=== PATIENT | female | born 1975 | race Caucasian/White ===

== ENCOUNTER 2016-08-24 13:40 | Emergency (ER) | payer MEDICAID | END 2016-08-24 14:13 | disposition home or self-care (01) | DX: J06.9 Acute upper respiratory infection, unspecified (principal); R06.2 Wheezing; F17.200 Nicotine dependence, unspecified, uncomplicated ==

== ENCOUNTER 2017-04-19 09:59 | Emergency (ER) | payer OTHER, MEDICAID ==
[2017-04-19 10:21] VITALS: BP 157/99
--- NOTE | 2017-04-19 10:26 | ED Physician Documentation ---
PD HPI HEENT - Stated complaint Stated Complaint: L EAR PX - Chief complaint Chief Complaint: Heent - History obtained from History obtained from: Patient - History of Present Illness Timing - onset: How many days ago (4) Timing - duration: Days (4) Timing - details: Abrupt onset, Still present Location: Left ear Improves: No: Medication (not improved with cortisporin otic drops for 2 full days of use.) Associated symptoms: Swollen nodes, Facial swelling (some around left preauricular area). No: Fever, Congestion Similar symptoms before: Has not had sx before Recently seen: Clinic (2 days ago and Dx with swimmers ear (she does use qtips occasionally, does not swim). Rx with cortisporin drops (she says she had initial Rx for something else but it was very expensive and her insurance did not cover it, so pharmacist called PMD and it was switched toCortisporin)) Review of Systems Constitutional: denies: Fever, Chills Ears: reports: Loss of hearing (on left), Ear pain. 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) - Past Surgical History Past Surgical History: No - Present Medications Home Medications: Ambulatory Orders Medication Instructions Recorded Confirmed Dexamethasone [Decadron] 4 mg PO DAILY #5 tablet 04/19/17 Ofloxacin 0.3% Ophth Drops 3 drops LEFTEAR QID #1 btl 04/19/17 [Ocuflox 0.3% Ophth Drops] Sulfamethox/Trimeth 800/160 1 each PO BID #14 tablet 04/19/17 [Bactrim Ds 800/160] Varenicline Tartrate [Chantix] 1 mg PO BID 04/19/17 04/19/17 - Allergies Allergies/Adverse Reactions: Allergies Allergy/AdvReac Type Severity Reaction Status Date / Time No Known Drug Allergies Allergy Verified 08/24/16 13:53 - Social History Does the pt smoke?: Yes Smoking Status: Current every day smoker Does the pt drink ETOH?: Yes Does the pt have substance abuse?: No - Immunizations Immunizations are current?: Yes PD ED PE NORMAL - Vitals Vital signs reviewed: Yes - General General: Alert and oriented X 3, No acute distress, Well developed/nourished - HEENT HEENT: Moist mucous membranes, Pharynx benign. No: Ears normal (right is good, but left has marked swelling of canal with redness of tissue. TM poorly seen but does appear intact. No obvious drainage. ) - Neck Neck: Supple, no meningeal sign, Other (left preauricular nodes palpable and some tender. No tenderness to percussion in mastoid area. ) - Cardiac Cardiac: RRR, No murmur - Derm Derm: Normal color, Warm and dry, No rash - Neuro Neuro: Alert and oriented X 3, Normal speech Results - Vitals Vitals: Vital Signs - 24 hr 04/19/17 10:05 Temperature 35.9 C L Heart Rate 105 H Respiratory 16 Rate Blood Pressure 157/99 H O2 Saturation 97 Oxygen O2 Source Room air PD MEDICAL DECISION MAKING - ED course Complexity details: considered differential (marked swelling and redness of canal. Wick placed with some drops to expand it. Seems like infection is in tissue and not just superficial, so will treat with oral as well. ), d/w patient Departure - Departure Disposition: 01 Home, Self Care Clinical Impression: Cellulitis of left ear canal Otitis externa Qualifiers: Otitis externa type: other infective Chronicity: acute Laterality: left Qualified Code(s): H60.392 - Other infective otitis externa, left ear Condition: Stable Record reviewed to determine appropriate education?: Yes Instructions: ED Otitis Externa Prescriptions: Dexamethasone [Decadron] 4 mg PO DAILY #5 tablet Ofloxacin 0.3% Ophth Drops [Ocuflox 0.3% Ophth Drops] 3 drops LEFTEAR QID #1 btl Sulfamethox/Trimeth 800/160 [Bactrim Ds 800/160] 1 each PO BID #14 tablet Comments: Switch from the current antibiotic eardrops to ofloxacin. This is an eyedrop preparation but can be used in the ear and should be cheap and presumably covered by insurance. Use it 2-3 drops in the left ear 4 times a day. We will also treat for the infection being deeper in the tissue with oral medications of an anti-inflammatory and Bactrim antibiotic. Recheck if not improved over the next several days to week. Change the wick tomorrow and after that hopefully the swelling will be down enough to be able to put the drops in without a wick. Discharge Date/Time: 04/19/17 11:05
== END 2017-04-19 11:05 | disposition home or self-care (01) ==
LOC: ED 09:59
DX: H60.12 Cellulitis of left external ear (principal); H60.392 Other infective otitis externa, left ear; F17.200 Nicotine dependence, unspecified, uncomplicated
CPT/HCPCS: 99283

== ENCOUNTER 2017-11-18 04:51 | Emergency (ER) | payer MEDICAID, OTHER ==
--- NOTE | 2017-11-18 05:46 | ED Physician Documentation ---
History of Present Illness - Stated complaint Stated Complaint: ALLERGY REACTION - Chief complaint Chief Complaint: General - History obtained from History obtained from: Patient - History of Present Illness Timing: Yesterday Pain level now: 2 Improved by: no ameliorating factors Worsened by: no exacerbating factors - Additonal information Additional information: saw dentist yesterday for dental pain and trace facial swelling, had xrays which patient says revealed an abscess, started on PO penicillin. Presents due to sudden worsening of facial swelling although she says the pain has improved and she is only using OTC analgesics (was not prescribed and says she does not need any). She says she had a (+) home- test recently. Review of Systems Constitutional: denies: Fever, Chills, Sweats Nose: denies: Congestion, Sinus pressure / pain Throat: reports: Dental pain / toothache. 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) - Past Surgical History Past Surgical History: No - Present Medications Home Medications: Ambulatory Orders Medication Instructions Recorded Confirmed Clindamycin HCl [Clindamycin 300MG 300 mg PO Q6HR 10 Days #39 capsule 11/18/17 CAP] predniSONE [Prednisone] 20 mg PO BID #5 tablet 11/18/17 - Allergies Allergies/Adverse Reactions: Allergies Allergy/AdvReac Type Severity Reaction Status Date / Time Penicillins Allergy Edema Verified 11/18/17 05:03 - Social History Does the pt smoke?: Yes Smoking Status: Current every day smoker Does the pt drink ETOH?: Yes Does the pt have substance abuse?: No - Immunizations Immunizations are current?: Yes - POLST Patient has POLST: No PD ED PE NORMAL - Vitals Vital signs reviewed: Yes - General General: Alert and oriented X 3, No acute distress, Well developed/nourished - HEENT HEENT: Moist mucous membranes - Neck Neck: Supple, no meningeal sign PD ED PE EXPANDED - HEENT HEENT Visual: 1 - swelling (mild gingival swelling without fluctuance or palpable/visible abscess collection), tenderness (mild TTP) 2 - rash (erythema), swelling Results - Vitals Vitals: Vital Signs - 24 hr 11/18/17 11/18/17 11/18/17 04:59 07:46 08:53 Temperature 36.9 C 98.8 C H 37.2 C Heart Rate 97 73 64 Respiratory 18 12 12 Rate Blood Pressure 134/90 H 120/97 H 122/97 H O2 Saturation 97 98 99 11/18/17 09:03 Temperature 38.2 C H Heart Rate 74 Respiratory 12 Rate Blood Pressure 112/87 H O2 Saturation 99 Oxygen O2 Source Room air - Labs Labs: Laboratory Tests 11/18/17 11/18/17 06:00 06:00 WBC 14.9 H RBC 4.55 Hgb 13.2 Hct 40.6 MCV 89.2 MCH 28.9 MCHC 32.5 RDW 13.6 Plt Count 307 MPV 7.6 L Neut # (Auto) 12.0 H Lymph # (Auto) 1.5 Brooke # (Auto) 1.1 H Eos # (Auto) 0.1 Baso # (Auto) 0.1 Absolute Nucleated RBC 0.00 Nucleated RBC % 0.0 Sodium 133 L Potassium 4.0 Chloride 99 L Carbon Dioxide 24 Anion Gap 10.0 BUN 8 Creatinine 0.6 Estimated GFR (MDRD) 110 Glucose 121 H Calcium 8.9 - Rads (name of study) CT facial bones Radiology: Prelim report reviewed, See rad report PD MEDICAL DECISION MAKING - ED course Complexity details: reviewed results, re-evaluated patient, considered differential, d/w patient Departure - Departure Disposition: 01 Home, Self Care Clinical Impression: Facial cellulitis, Dental abscess Condition: Good Instructions: ED Dental Abscess Facial Cellulitis Prescriptions: Clindamycin HCl [Clindamycin 300MG CAP] 300 mg PO Q6HR 10 Days #39 capsule predniSONE [Prednisone] 20 mg PO BID #5 tablet Comments: Follow up with your dentist Monday. Discharge Date/Time: 11/18/17 09:03
[2017-11-18] MEDS ORDERED: IOPAMIDOL-300 100 ML VIAL ONE (06:14)
[2017-11-18 06:21] LABS: BASOPHILS # (AUTO) 0.1 10^3/uL (0.0-0.1); EOSINOPHILS # (AUTO) 0.1 10^3/uL (0.0-0.7); EOSINOPHILS % (AUTO) 0.9 %; HGB - HEMOGLOBIN 13.2 g/dL (12.0-16.0); LYMPHOCYTES # (AUTO) 1.5 10^3/uL (1.5-3.5); LYMPHOCYTES % (AUTO) 10.4 %; MEAN CORPUSCULAR HEMOGLOBIN 28.9 pg (27.0-31.0); MEAN CORPUSCULAR HGB CONC 32.5 g/dL (32.0-36.0); MEAN CORPUSCULAR VOLUME 89.2 fL (81.0-99.0); MEAN PLATELET VOLUME 7.6 fL (7.9-10.8); MONOCYTES # (AUTO) 1.1 10^3/uL (0.0-1.0); MONOCYTES % (AUTO) 7.3 %; NEUTROPHILS % (AUTO) 80.4 %; PLT - PLATELET COUNT 307 10^3/uL (130-450); RED BLOOD COUNT 4.55 10^6/uL (4.20-5.40); RED CELL DISTRIBUTION WIDTH 13.6 % (12.0-15.0); WHITE BLOOD COUNT 14.9 x10^3/uL (4.8-10.8)
[2017-11-18 06:35] LABS: CALCIUM 8.9 mg/dL (8.5-10.3); CREATININE 0.6 mg/dL (0.4-1.0)
[2017-11-18] MEDS ORDERED: IOPAMIDOL-300 100 ML VIAL IVP ONE (06:42)
--- NOTE | 2017-11-18 07:34 | CT Report ---
EXAM: CT MAXILLOFACIAL WITH CONTRAST EXAM DATE: 11/18/2017 06:58 AM. CLINICAL HISTORY: Dental abscess. Swelling left side of face. COMPARISONS: None. TECHNIQUE: Thin-section axial images were acquired of the face after administration of intravenous co ntrast. Post-processing: Coronal and sagittal reformats. Other: None. IV contrast: 80ML ISOVUE 300. In accordance with CT protocol optimization, one or more of the following dose reduction techniques w ere utilized for this exam: automated exposure control, adjustment of mA and/or KV based on patient s ize, or use of iterative reconstructive technique. Findings: Relevant images are indicated (image number, series number). Limited evaluation of intracranial contents unremarkable. There is left preseptal edema, no drainable abscess, no post-septal involvement. Left orbit otherwise negative. Asymmetric soft tissue swelling overlying the left face with scattered subcutaneous fat stranding, as ymmetrical left-sided thickening of the cervical fascial fascia. Thin edema abutting left maxilla, bu ccal side, (60, 4) measuring 7.4 mm in length, 0.2 cm in width, at least 10.5 mm craniocaudal (30, 6) . Otherwise, there is however no drainable collection, no defined abscess at this time. Multifocal poor dentition, apical cyst present left maxillary first premolar (65, 7). Multifocal dent al caries present. No additional apical cyst. No gross bony destructive process. Remaining oral cavity unremarkable. Impressions: 1. Thin abscess abutting buccal side maxillary ridge as detailed. Scattered subcutaneous fat strandin g overlying the left face including preseptal edema, no post-septal involvement, consistent with patc hy prominent cellulitis. Consider short interval follow-up imaging to evaluate for additional develop ment of abscess. No large drainable collection as detailed. 2. Multifocal poor dentition, apical cyst involving left maxillary premolar. No gross bony destructiv e process. [facility] Referring Provider Line: [phone] SITE ID: [id number]
[2017-11-18] MEDS ORDERED: CLINDAMYCIN 600 MG/50 ML 50 ML IV ONE (07:50)
[2017-11-18] MEDS ORDERED: predniSONE 20 MG TABLET PO STA (07:52)
[2017-11-18 09:05] VITALS: BP 112/87
== END 2017-11-18 09:03 | disposition home or self-care (01) ==
LOC: ED 04:51
DX: K04.7 Periapical abscess without sinus (principal); L03.211 Cellulitis of face; F17.200 Nicotine dependence, unspecified, uncomplicated
CPT/HCPCS: 36415; 70487; 80048; 85025; 96374; 99283; J7512; Q9967

== ENCOUNTER 2017-11-24 19:29 | Outpatient (CLI) | payer OTHER ==
--- NOTE | 2017-11-24 20:53 | Ultrasound Preliminary Report ---
Exam: US OB FIRST TRIMESTER IMPRESSION: Equivocal very small single intrauterine gestational sac, which, if "real" corresponds to EGA 5 weeks 5 days, MIS 07/22/2018. Recommend serial beta hCG and follow-up pelvic ultrasound in 10-14 days to d etermine significance of this finding. [facility] The call report notification system was initiated by Dr. Gilda Faustin at 20:46 hrs on 11/24/17. The above findings were discussed with JAYSON Barnhart by Dr. Gilda Faustin at 20:52 hrs on 8. SITE ID: [id number]
--- NOTE | 2017-11-24 21:01 | Ultrasound Report ---
EXAM: FIRST TRIMESTER OBSTETRIC ULTRASOUND (Less than 11 weeks) EXAM DATE: 11/24/2017 08:21 PM. CLINICAL HISTORY: Vaginal bleeding. LMP: 10/06/2017. COMPARISONS: None. TECHNIQUE: Transabdominal ultrasound examination with static image documentation. Please note that tr ansvaginal scanning not performed. CLINICAL DATES: EGA 7 weeks 0 days with MIS 07/13/2018 based on LMP. ASSESSMENT: Gestational Sac: Equivocal single intrauterine gestational sac 10 mm mean gestational sac diameter, along the anterior margin of the 11 mm thick endometrial echoes. Small amount of highly echogenic material within this small fluid collection. No confident visualization of either pole or yolk sac. No cardiac motion. MATERNAL STRUCTURES: Uterus: Anteverted. 9.6 x 4.5 x 4.9 cm, 111 cc. Normal myometrial echoes. Unremarkable. Cervix: Closed. Right Ovary/Adnexa: Unremarkable. The ovary measures 1.8 x 1.4 x 2.5 cm, volume 3.2 cc. Left Ovary/Adnexa: Unremarkable. The ovary measures 2.3 x 1.4 x 2.4 cm, volume 4.1 cc. Free Fluid: None. Other: None. IMPRESSION: Equivocal very small single intrauterine gestational sac, which, if "real", corresponds to EGA 5 week s 5 days, MIS 07/22/2018. Recommend serial beta hCG and follow-up pelvic ultrasound in 10-14 days to determine significance of this finding. TESSIEA The call report notification system was initiated by Dr. Gilda Faustin at 20:46 hrs on 11/24/17. The above findings were discussed with JAYSON Barnhart by Dr. Gilda Faustin at 20:52 hrs on 8. Referring Provider Line: [phone] SITE ID: [id number]
== END 2017-11-24 19:30 | disposition home or self-care (01) ==
LOC: DI 19:29
PROVIDERS: ATTEND Physician Assistant
DX: O46.91 Antepartum hemorrhage, unspecified, first trimester (principal)
CPT/HCPCS: 76801

== ENCOUNTER 2017-12-11 14:38 | Outpatient (CLI) | END 2017-12-11 14:39 | disposition home or self-care (01) ==

== ENCOUNTER 2017-12-19 11:09 | Outpatient (CLI) | payer OTHER | END 2017-12-19 11:10 | disposition home or self-care (01) | LOC: LAB 11:09 | PROVIDERS: ATTEND Obstetrics & Gynecology | DX: O20.9 Hemorrhage in early pregnancy, unspecified (principal) | CPT/HCPCS: 36415; 84702 ==

== ENCOUNTER 2018-12-25 20:34 | Emergency (ER) | payer BC, OTHER ==
[2018-12-25] MEDS ORDERED: GABAPENTIN 100 MG CAPSULE PO STA (21:26)
[2018-12-25] MEDS ORDERED: CHERRY SYRUP 10 ML UDC PO ONE (21:26)
[2018-12-25] MEDS ORDERED: DEXAMETHASONE 10 MG/ML VIAL PO STA (21:26)
--- NOTE | 2018-12-25 21:28 | ED Physician Documentation ---
History of Present Illness - Stated complaint Stated Complaint: BILAT HAND TINGLE/PX - Chief complaint Chief Complaint: Ext Problem - History obtained from History obtained from: Patient - History of Present Illness Timing: How many weeks ago (several) Pain level max: 5 Pain level now: 5 - Additonal information Additional information: 43-year-old female complains of bilateral hand tingling for the past several weeks to months. She states she has a history of carpal tunnel syndrome. She states it is worse with typing on a keyboard. Nothing makes it better. Has not taken anything for pain. She did try a brace on the left hand but states that this did not help. Has not seen an orthopedist. 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) - Past Surgical History Past Surgical History: No - Present Medications Home Medications: Ambulatory Orders Medication Instructions Recorded Confirmed Gabapentin 100 mg PO TID PRN #20 capsule 12/25/18 - Allergies Allergies/Adverse Reactions: Allergies Allergy/AdvReac Type Severity Reaction Status Date / Time Penicillins Allergy Edema Verified 11/18/17 05:03 - Social History Does the pt smoke?: Yes Smoking Status: Current every day smoker Does the pt drink ETOH?: Yes Does the pt have substance abuse?: No - Immunizations Immunizations are current?: Yes - POLST Patient has POLST: No PD ED PE NORMAL - Vitals Vital signs reviewed: Yes - General General: Alert and oriented X 3, No acute distress, Well developed/nourished - HEENT HEENT: PERRL, Moist mucous membranes - Neck Neck: Supple, no meningeal sign - Cardiac Cardiac: RRR, Strong equal pulses - Respiratory Respiratory: No respiratory distress, Clear bilaterally - Abdomen Abdomen: Soft, Non tender, Non distended - Derm Derm: Warm and dry - Extremities Extremities: Other (Normal examination of the bilateral hands. Negative Phalen's test. Negative Tinel sign) - Neuro Neuro: Alert and oriented X 3, No motor deficit, No sensory deficit - Psych Psych: Normal mood, Normal affect Results - Vitals Vitals: Vital Signs - 24 hr 07/09/19 07/09/19 20:37 21:32 Temperature 36.7 C 36.9 C Heart Rate 97 94 Respiratory 16 16 Rate Blood Pressure 148/117 H 141/85 H O2 Saturation 99 98 Oxygen O2 Source Room air PD MEDICAL DECISION MAKING - ED course Complexity details: considered differential, d/w patient ED course: 43-year-old female with what sounds like carpal tunnel syndrome. Declines any bracing. We will trial her on gabapentin and recommend that she follow-up with orthopedics for further care. Also given a dose of dexamethasone here. Patient counseled regarding signs and symptoms for which I believe and urgent re-evaluation would be necessary. Patient with good understanding of and agreement to plan and is comfortable going home at this time This document was made in part using voice recognition software. While efforts are made to proofread this document, sound alike and grammatical errors may occur. Departure - Departure Disposition: 01 Home, Self Care Clinical Impression: Carpal tunnel syndrome Qualifiers: Laterality: bilateral Qualified Code(s): G56.03 - Carpal tunnel syndrome, bilateral upper limbs Condition: Good Instructions: ED Carpal Tunnel Follow-Up: AVELINA MIRZA MD [Primary Care Provider] - Within 1 week Prescriptions: Gabapentin 100 mg PO TID PRN #20 capsule PRN Reason: hand pain Comments: Follow up with your doctor for further evaluation. You should see an orthopedist/hand surgeon as well. Return if you worsen. Forms: Activity restrictions Discharge Date/Time: 12/25/18 21:35
[2018-12-25 21:33] VITALS: BP 141/85
== END 2018-12-25 21:35 | disposition home or self-care (01) ==
LOC: ED 20:34
DX: G56.03 Carpal tunnel syndrome, bilateral upper limbs (principal); F17.200 Nicotine dependence, unspecified, uncomplicated
CPT/HCPCS: 99282; 99284; A9270

== ENCOUNTER 2023-06-22 12:26 | Emergency (ER) | payer BC, OTHER ==
[2023-06-22 12:35] VITALS: BP 114/60; O2SAT 99
--- NOTE | 2023-06-22 12:54 | ED Physician Documentation ---
PD HPI LOWER EXT INJURY - Stated complaint Stated Complaint: GLF/LT KNEE INJ - Chief complaint Chief Complaint: Trauma Ext - History obtained from History obtained from: Patient - History of Present Illness PD HPI LOW EXT INJURY LOCATION: Left, Knee Type of injury: Fall Where injury occurred: Work Timing - onset: How many hours ago (1), Today - Additional information Additional information: Patient reports she was at work slipped and fell onto an old piece of concrete did not hit her head denies any abuse or concerns of abuse and now has large open wound to her left anterior knee. Bleeding is well-controlled she denies any use of blood thinners. She says that she is able to ambulate without any difficulty and denies any knee pain aside from the open laceration to her knee. She denies any dizziness or weakness leading to the fall and reports that it was strictly mechanical given the wet surface of the walking area. 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: Yes - POLST Patient has POLST: No PD ED PE NORMAL - General General: Alert and oriented X 3 - HEENT HEENT: Atraumatic - Derm Derm: Other (Large open laceration to the anterior aspect of her left knee in an L-shaped. Approximately 6 to 7 cm. Bleeding well-controlled.) - Extremities Extremities: No deformity, No calf tenderness / cord, Other (Patient able to b end knee pulses palpable is able to ambulate with any weakness no obvious deformity or joint line tenderness) Results - Vitals Vitals: Vital Signs - 24 hr 06/22/23 12:30 Temperature 36.5 C Heart Rate 65 Respiratory 18 Rate Blood Pressure 114/60 O2 Saturation 99 Oxygen O2 Source Room air - Rads (name of study) x ray Relevant Findings:: Final report received, EMP independent interpretation of test (No obvious fractures or dislocation) Procedures - Laceration (location) Lower extremity Length in cm: 8 Wound type: Flap, Exposure of cartilage Neurovascular status: Sensory intact, Motor intact Tendon involvement: Tendon intact Anesthesia: Marcaine 0.25% Wound preparation: Irrigated copiously NS Skin layer closure: Nylon, Sutures - enter # (10) Other: Patient tolerated well PD Medical Decision Making - ED course ED course: X-rays are complete of the left knee does not reveal any obvious fractures or dislocations, no chips to the patella. Patient is able to ambulate without difficulty, full strength full range of motion. The wound does appear to be deep enough to the tendon sheath. See laceration note above. She received a total of 10 sutures the wound ended up being about 8 cm in length. Patient tolerated procedure well. Is irrigated copiously with normal saline. Patient was advised to have sutures removed in 14 days given that it is over a joint. There is no antibiotics required at this time but patient was told if she starts to develop any signs or symptoms of infection and was taught what signs and symptoms of infection to watch out for to start taking antibiotic Keflex paper prescriptions at home with patient. She is able to understand all discharge instructions and was told to follow-up if any worsening signs or symptoms of infection despite taking antibiotics all questions answered safe for discharge. Departure - Departure Disposition: 01 Home, Self Care Clinical Impression: Fall from ground level Condition: Fair Instructions: Wound Care Prescriptions: cephALEXin [Keflex] 500 mg PO Q6H #28 Comments: Thank you for trusting us with your care you should have your sutures removed in 14 days. In the meantime please keep it covered with a bandage and some sort of antibiotic ointment to prevent against getting infection and to improve healing and recovery. Make sure that you are ambulating and still bending her knee frequently. If you are starting to develop any pain you can alternate between the 1000 mg of Tylenol every 8 hours and 600 mg of ibuprofen every 6 hours. Smoking cigarettes will delay any wound recovery so would avoid doing so if you do smoke. If you start to develop any signs or symptoms of infection which includes redness, drainage that appears to be yellow/green, fevers, chills, body aches or any other concerning symptoms I am sending you home with a paper prescription of Keflex you will take this 4 times a day for 7 days if you start to develop any signs or symptoms of infection. If your wound does not appear to develop any signs or symptoms of infection there is no need to take this antibiotic. Please follow-up with your primary care provider, urgent care, or ER to have sutures removed keep in mind if you present back to the ER for sutures removed the wait time could be significant. Wishing you a speedy recovery! Forms: PCP List Discharge Date/Time: 06/22/23 14:20
--- NOTE | 2023-06-22 13:25 | XRAY Report ---
PROCEDURE: Knee 4+V LT INDICATIONS: Trauma TECHNIQUE: 4 views of the knee(s) were acquired. COMPARISON: None. FINDINGS: Bones: No fractures or dislocations. No suspicious bony lesions. Soft tissues: Mild knee joint effusion. No suspicious soft tissue calcifications or masses. IMPRESSION: No visualized acute fracture or dislocation. However, occult injury cannot be excluded. Recommend isaura rt interval imaging follow-up in 7-10 days as clinically indicated for additional evaluation. Reviewed by: Elizabeth Mccurdy MD on 06/22/2023 1:23 PM PST Approved by: Elizabeth Mccurdy MD on 06/22/2023 1:23 PM [facility] Station ID: [id number]
== END 2023-06-22 14:20 | disposition home or self-care (01) ==
LOC: ED 12:26
DX: S81.012A Laceration without foreign body, left knee, initial encounter (principal); W01.198A Fall on same level from slipping, tripping and stumbling with subsequent striking against other object, initial encounter; Y99.0 Civilian activity done for income or pay; F17.200 Nicotine dependence, unspecified, uncomplicated
CPT/HCPCS: 1040M; 12034; 73564; 99283